=== PATIENT | male | born 1990 | race Asian ===

== ENCOUNTER 2024-05-18 02:00 | Emergency (ER) | payer OTHER ==
[~2024-05-18] VITALS: Ht 177.8 cm; Wt 68.0 kg
[2024-05-18 02:05] VITALS: BP 139/75; PULSE 123; RESP 20; TEMP 98; O2SAT 98
--- NOTE | 2024-05-18 02:05 | NUR ---
[facility]IB [facility] FOR PREBOOK EXAM
--- NOTE | 2024-05-18 02:35 | NUR ---
PATIENT EXAMINED BY DR. YUAN. PATIENT MEDICALLY CLEARED AND RELEASED IN CUSTODY IN STABLE CONDITION. ORIGINAL PRE-BOOK FORM GIVEN TO OFFICER .
[2024-05-18 02:40] VITALS: BP 139/75; PULSE 123; RESP 20; TEMP 98; O2SAT 98
--- NOTE | 2024-05-18 02:40 | NUR ---
Patient discharged with v/s stable. Written and verbal after care instructions given and explained. Patient verbalized understanding. Police with steady gait. All questions addressed prior to discharge. Advised to follow up with PMD.
== END 2024-05-18 02:35 ==
LOC: MED 02:00
DX: Z04.3 Encounter for examination and observation following other accident (principal); V89.2XXA Person injured in unspecified motor-vehicle accident, traffic, initial encounter; Y93.89 Activity, other specified; Y92.411 Interstate highway as the place of occurrence of the external cause; Y99.8 Other external cause status
CPT/HCPCS: 99283